=== PATIENT | female | born 1975 | race Caucasian/White ===

== ENCOUNTER → 2020-12-06 | Outpatient (CLI) | payer OTHER ==
[~2020-12-06] MED LIST: NONE PER PT
[2020-12-06 13:50] LABS: MICROSCOPIC NOT IND
[2020-12-06 13:50] LABS: BASOPHILS % (AUTO) 1 % (0-1); EOSINOPHILS % (AUTO) 2 % (1-7); LYMPHOCYTES % (AUTO) 28 % (22-44); MEAN CORPUSCULAR HEMOGLOBIN 29.2 pg (27.0-34.8); MEAN CORPUSCULAR HGB CONC 33.8 g/dL (32.4-35.8); MEAN PLATELET VOLUME 9.3 fL (7.4-10.4); MONOCYTES % (AUTO) 8 % (2-9); NEUTROPHILS % (AUTO) 61 % (42-75); PLATELET COUNT 312 x10^3/uL (130-400); RED BLOOD COUNT 4.61 x10^6/uL (3.82-5.3); RED CELL DISTRIBUTION WIDTH 13.6 % (9.6-15.2)
[2020-12-06 13:51] LABS: MD NO
[2020-12-06 14:02] LABS: ALANINE AMINOTRANSFERASE 26 U/L (12-78); ALBUMIN 3.9 g/dL (3.4-5.0); ANION GAP 4 mmol/L (5-15); CHLORIDE 104 mmol/L (98-107); CREATININE 0.55 mg/dL (0.55-1.02)
[2020-12-06 14:07] LABS: ALKALINE PHOSPHATASE 63 U/L (45-117); BILIRUBIN,TOTAL 0.2 mg/dL (0.2-1.0); TOTAL PROTEIN 8.2 g/dL (6.4-8.2)
== END | disposition home or self-care (01) ==
LOC: STAR 12:38
PROVIDERS: ATTEND Obstetrics & Gynecology Gynecology
DX: Z01.818 Encounter for other preprocedural examination (principal); N83.209 Unspecified ovarian cyst, unspecified side; Z20.822 Contact with and (suspected) exposure to COVID-19
CPT/HCPCS: 36415; 71046; 80053; 81003; 84702; 85025; 93005; U0003

== ENCOUNTER 2020-12-12 08:55 | Day surgery (SDC) | payer OTHER ==
[~2020-12-12] VITALS: Ht 170.2 cm; Wt 69.2 kg
[2020-12-12 09:41] VITALS: BP 134/89
[2020-12-12] MEDS ORDERED: MANNITOL PMX 20% 500 ML ONE (09:57)
[2020-12-12] MEDS ORDERED: BUPIVACAINE/PF 0.25% ONE (09:57)
[2020-12-12] MEDS ORDERED: EPINEPHRINE 1 MG/ML, 1ML ONE (09:57)
[2020-12-12] MEDS ORDERED: CHLORHEXIDINE 15 ML UDC PO ONE (10:00)
[2020-12-12] MEDS ORDERED: LACTATED RINGERS 1,000 ML IV SCH (10:00)
[2020-12-12] MEDS ORDERED: FENTANYL PF 250 MCG/5ML ONE (10:15)
[2020-12-12] MEDS ORDERED: MIDAZOLAM 1 MG/ML, 2ML ONE (10:15)
[2020-12-12] MEDS ORDERED: PROPOFOL 10 MG/ML, 20ML ONE (10:23)
[2020-12-12] MEDS ORDERED: DEXAMETHASONE 4 MG/ML, 1ML ONE (10:23)
[2020-12-12] MEDS ORDERED: GLYCOPYRROLATE 0.2MG/1ML, 5ML ONE (10:23)
[2020-12-12] MEDS ORDERED: NEOSTIGMINE 1 MG/ML, 10ML ONE (10:23)
[2020-12-12] MEDS ORDERED: PHENYLEPHRINE 10 MG/ML ONE (10:23)
[2020-12-12] MEDS ORDERED: ROCURONIUM 10 MG/ML,10ML ONE (10:23)
[2020-12-12] MEDS ORDERED: CEFAZOLIN 1,000 MG ONE (10:23)
[2020-12-12] MEDS ORDERED: ONDANSETRON 2MG/ML, 2ML ONE (10:23)
[2020-12-12] MEDS ORDERED: METOPROLOL 1 MG/ML, 5ML IV PRN (10:30)
[2020-12-12] MEDS ORDERED: ACETAMINOPHEN 325 MG TABLET PO PRN (10:30)
[2020-12-12] MEDS ORDERED: PROMETHAZINE 25 MG/ML, 1ML IVPush PRN (10:30)
[2020-12-12] MEDS ORDERED: HALOPERIDOL 5 MG/ML IV PRN (10:30)
[2020-12-12] MEDS ORDERED: LORazepam 2 MG/ML, 1ML IVPush PRN (10:30)
[2020-12-12] MEDS ORDERED: HYDROmorphone 1 MG/ML, 1ML INJ IVPush PRN (10:30)
[2020-12-12] MEDS ORDERED: KETOROLAC 30 MG/1 ML IV PRN (10:30)
[2020-12-12] MEDS ORDERED: DIPHENHYDRAMINE 50 MG/ML, 1ML IVPush PRN (10:30)
[2020-12-12] MEDS ORDERED: LABETALOL 5MG/ML, 20ML IV PRN (10:30)
[2020-12-12] MEDS ORDERED: ONDANSETRON 2MG/ML, 2ML IVPush PRN (10:30)
[2020-12-12] MEDS ORDERED: ALBUTEROL SULFATE 2.5 MG/3 ML NPPB PRN (10:30)
[2020-12-12] MEDS ORDERED: MEPERIDINE/PF 25MG/0.5ML IVPush PRN (10:30)
[2020-12-12] MEDS ORDERED: EPHEDRINE 50 MG/ML, 1ML IVPush PRN (10:30)
[2020-12-12] MEDS ORDERED: hydrALAzine 20 MG/ML, 1ML IV PRN (10:30)
[2020-12-12] MEDS ORDERED: OXYcodone 5 MG/5 ML ORAL.SOL UDC PO PRN (10:30)
[2020-12-12] MEDS ORDERED: FENTANYL PF 100 MCG/2ML ONE (11:50)
[2020-12-12] MEDS ORDERED: OXYcodone 5 MG/5 ML ORAL.SOL UDC ONE (11:50)
[2020-12-12] MEDS: FENTANYL PF 100 MCG/2ML IV PRN ×2 (11:55→12:00)
[2020-12-12] MEDS ORDERED: KETOROLAC 30 MG/1 ML ONE (12:08)
[2020-12-12] MEDS ORDERED: ACETAMINOPHEN 650 MG/20.3 ML UDC ONE (12:08)
[2020-12-12] MEDS ORDERED: HYDROmorphone 1 MG/ML, 1ML INJ ONE (12:21)
== END 2020-12-12 16:45 | disposition home or self-care (01) ==
LOC: OUT 08:55
PROVIDERS: ATTEND Obstetrics & Gynecology Gynecology
DX: N83.02 Follicular cyst of left ovary (principal); N73.6 Female pelvic peritoneal adhesions (postinfective); Z79.899 Other long term (current) drug therapy; Z90.710 Acquired absence of both cervix and uterus; Z98.51 Tubal ligation status; Z98.890 Other specified postprocedural states
CPT/HCPCS: 58661; 88305; J0171; J0690; J1100; J1170; J1885; J2250; J2370; J2405; J2704; J2710; J3010; J7120; S2900